=== PATIENT | female | born 1980 | race Two or more races ===

== ENCOUNTER 2019-10-08 20:47 | Emergency (ER) | payer OTHER ==
[~2019-10-08] VITALS: Ht 172.7 cm; Wt 77.1 kg
[2019-10-08 21:12] VITALS: BP 130/85
[2019-10-09] MEDS ORDERED: ONDANSETRON ODT 4 MG TAB PO ONE (01:15)
[2019-10-09] MEDS ORDERED: KETOROLAC TROMETH 60MG/2ML VIAL IM ONE (01:30)
== END 2019-10-09 02:15 | disposition home or self-care (01) ==
LOC: ER 20:53
DX: G43.909 Migraine, unspecified, not intractable, without status migrainosus (principal); R00.2 Palpitations
CPT/HCPCS: 96372; 99283; J1885; Q0162